=== PATIENT | female | born 1960 | race Caucasian/White ===

== ENCOUNTER → 2023-12-22 08:57 | Outpatient (REF) | payer MEDICARE, OTHER, SELFPAY | LOC: RAD 08:57 | PROVIDERS: ATTENDING PHYSICIAN Physician Assistant Medical | DX: R10.32 Left lower quadrant pain (principal) | CPT/HCPCS: 74177; Q9967 ==

== ENCOUNTER → 2025-06-12 12:50 | Outpatient (REF) | payer MEDICARE, OTHER, SELFPAY | LOC: RCS 12:50 | PROVIDERS: ATTENDING PHYSICIAN Internal Medicine; FAMILY PHYSICIAN Family Medicine | DX: C50.919 Malignant neoplasm of unspecified site of unspecified female breast (principal); I10 Essential (primary) hypertension; R94.31 Abnormal electrocardiogram [ECG] [EKG]; R42 Dizziness and giddiness; R00.2 Palpitations | CPT/HCPCS: 93017; 93350 ==

== ENCOUNTER → 2025-06-19 14:41 | Outpatient (REF) | payer MEDICARE, OTHER, SELFPAY | LOC: HWRCS 14:41 | PROVIDERS: ATTENDING PHYSICIAN Internal Medicine; FAMILY PHYSICIAN Family Medicine | DX: C50.919 Malignant neoplasm of unspecified site of unspecified female breast (principal); I10 Essential (primary) hypertension; R94.31 Abnormal electrocardiogram [ECG] [EKG]; R42 Dizziness and giddiness; R00.2 Palpitations | CPT/HCPCS: 93306 ==

== ENCOUNTER → 2025-08-21 06:33 | Outpatient (REF) | payer MEDICARE, OTHER, SELFPAY | LOC: MRI 06:33 | PROVIDERS: ATTENDING PHYSICIAN Orthopaedic Surgery; FAMILY PHYSICIAN Family Medicine | DX: M25.512 Pain in left shoulder (principal) | CPT/HCPCS: 73221 ==